=== PATIENT | male | born 1945 | race Caucasian/White ===

== ENCOUNTER 2025-03-10 06:00 | Day surgery (SDC) | payer MEDICARE, BC ==
[~2025-03-10 06:00] MED LIST: Morphine 8 MG, EPINEPHrine 0.3 MG, Cefuroxime 750 MG, Ketorolac 30 MG, Sodium Chloride ... PRN
[2025-03-10] MEDS: Lactated Ringers 1,000 ML IV SCH (06:00)
[2025-03-10] MEDS ORDERED: propofoL 500 MG/50 ML 50 ML ONE ×2 (06:20→07:53)
[2025-03-10] MEDS ORDERED: fentaNYL 100 MCG/2 ML SDV ONE (06:22)
[2025-03-10 06:47] LABS: INR 1.06
[2025-03-10 06:49] LABS: PTT,PARTIAL THROMBOPLSTIN TIME 26.7 SECONDS (21.7-31.4)
[2025-03-10] MEDS ORDERED: Phenylephrine 1% 10 MG/ML SDV ONE (06:57)
[2025-03-10] MEDS ORDERED: Lactated Ringers 1,000 ML ONE (08:02)
[2025-03-10] MEDS ORDERED: Ondansetron 4 MG/2 ML SDV IVPUSH PRN (08:06)
[2025-03-10] MEDS ORDERED: fentaNYL 100 MCG/2 ML SDV IVPUSH PRN (08:06)
[2025-03-10] MEDS: Morphine 8 MG, EPINEPHrine 0.3 MG, Cefuroxime 750 MG, Ketorolac 30 MG, Sodium Chloride ... PRN (08:24)
[2025-03-10] MEDS: Triamcinolone Acetonide 40 MG/ML 1 ML SDV ONE (08:45)
[2025-03-10] MEDS: Acetaminophen/HYDROcodone 325-5 MG Tab PO ONE (11:40)
== END 2025-03-10 12:30 | disposition home or self-care (01) ==
LOC: JD.SDS 06:00
PROVIDERS: ATTEND Orthopaedic Surgery
DX: M16.12 Unilateral primary osteoarthritis, left hip (principal); M17.11 Unilateral primary osteoarthritis, right knee; Z88.8 Allergy status to other drugs, medicaments and biological substances; Z79.899 Other long term (current) drug therapy; Z79.84 Long term (current) use of oral hypoglycemic drugs; Z87.891 Personal history of nicotine dependence; I10 Essential (primary) hypertension
CPT/HCPCS: 0055T; 20610; 27130; 36415; 64450; 73501; 85610; 85730; 97116; 97161; A9270; C1713; C1776; J0169; J0665; J0690; J0697; J1885; J2272; J2371; J2704; J3010; J3301; J3373; J7120; 01214; 99100